=== PATIENT | female | born 1970 | race Two or more races ===

== ENCOUNTER 2024-12-05 17:46 | Emergency (ER) | payer MEDICAID, SELFPAY ==
[2024-12-05 17:47] VITALS: BMI 29.1
--- NOTE | 2024-12-05 17:52 | EKG_ITS ---
[facility] Test Date: 2024-12-05 Pat Name: DEBRA HERNÁNDEZ Department: Room: - Gender: Female [employer] Person: : 1970 Requested By: ED Temporary Provider Order Number: [id number] Reading MD: ED Temporary Provider Measurements Intervals Shirley Rate: 64 P: 56 MI: 159 QRS: 56 QRSD: 77 T: 48 QT: 390 QTc: 403 Interpretive Statements SINUS RHYTHM MODERATE ST DEPRESSION [0.05+ mV ST DEPRESSION] No previous ECG available for comparison /[id number]/[email or web address]/[id number].pdf
[2024-12-05 18:33] VITALS: BP 183/98; PULSE 63; RESP 18; TEMP 37.1; O2SAT 100
--- NOTE | 2024-12-05 18:46 | XR_ITS ---
Examination: PA lateral chest 2 views Technique: Upright PA lateral chest 2 views Exam date and time: December 05, 2024 at 1949 hrs. Indications: Onset chest pain today Findings: No significant cardiac enlargement No pneumonia or pulmonary edema The osseous structures are intact Impression: No pneumonia or pulmonary edema
--- NOTE | 2024-12-05 18:46 | PD.EDRME ---
Rapid Medical Screening Exam E Arrival date/time: 12/05/24 17:46 54-year-old female past medical history of hypertension presents emergency department complaining of left-sided chest pain that radiates to left arm and upper neck 05/05 that started this morning. Patient report was sent by primary care provider for evaluation. Chief Complaint: Chest Pain Time Seen by Provider: 12/05/24 18:34 Vital signs: Vital Signs Temperature 98.7 F 12/05/24 18:33 Pulse Rate 63 12/05/24 18:33 Respiratory Rate 18 12/05/24 18:33 Blood Pressure 183/98 H 12/05/24 18:33 Pulse Oximetry (%) 100 12/05/24 18:33 Oxygen Delivery Method Room Air 12/05/24 18:33 Vital signs reviewed by provider: Yes
[2024-12-05 19:21] LABS: Collection Type, Urine Clean Catch
[2024-12-05 19:30] LABS: Basophils % (Auto) 1 % (0-2.5); Eosinophils # (Auto) 0.2 Thou/mm3 (0.0-0.5); Eosinophils % (Auto) 2 % (0-10); Hematocrit 40.7 % (36.0-46.0); Hemoglobin 13.3 g/dL (12.0-16.0); Immature Granulocytes % (Auto) 0 % (0-0); Immature Granulocytes Auto 0.01 Thou/mm3 (0.00-0.00); Lymphocytes % (Auto) 29 % (10-50); Mean Corpuscular HGB Conc 32.7 g/dl (31.0-37.0); Mean Corpuscular Hemoglobin 28.5 pg (25.0-35.0); Mean Corpuscular Volume 87 fL (80-100); Monocytes # (Auto) 0.5 Thou/mm3 (0.0-0.8); Monocytes % (Auto) 7 % (0-12); Neutrophils # (Auto) 4.2 Thou/mm3 (1.8-7.7); Neutrophils % (Auto) 61 % (37-80); Nucleated Red Blood Cell % 0 /100 WBC (0); Platelet Count 325 Thou/mm3 (140-440); RDW Standard Deviation 43.8 fL (36.4-46.3); Red Blood Count 4.66 Miln/mm3 (4.00-5.20)
[2024-12-05 19:35] LABS: Bilirubin,Urine Negative (Negative); Blood,Urine Negative (Negative); Clarity,Urine Clear (Clear/Hazy); Color,Urine Colorless (Lt Yel-Yel); Glucose, Urine Negative (Negative); Ketones,Urine Negative (Negative); Leukocyte Esterase,Urine Negative (Negative); Nitrite,Urine Negative (Negative); PH,Urine 6.5 (5.0-7.0); Protein,Urine Negative (Neg - Trace); RBC,Urine 2 /hpf (0-3); Specific Gravity,Urine 1.012 (1.001-1.035); Squamous Epithelial Cell,Urine < 1 /hpf (0-5); Urobilinogen,Urine Negative mg/dL (0.0-1.0); WBC,Urine < 1 /hpf (0-5)
[2024-12-05 19:41] LABS: Prothrombin Time 11.1 Seconds (9.0-12.2)
[2024-12-05 19:44] LABS: B-Type Natriuretic Peptide 56 pg/mL (0-100)
[2024-12-05 19:46] LABS: Alanine Aminotransferase 94 U/L (10-49); Albumin/Globulin Ratio 1.5 (1.2-2.2); Alkaline Phosphatase 211 U/L (46-116); Anion Gap 10 (7-16); Aspartate Amino Transferase 79 U/L (0-34); BUN/Creatinine Ratio 14 Ratio (12-20); Bilirubin,Total 0.3 mg/dL (0.3-1.2); Blood Urea Nitrogen 13 mg/dL (9-23); Calcium 10.5 mg/dL (8.3-10.6); Calcium (Corrected) 10.5 mg/dL (8.5-10.1); Carbon Dioxide 25.6 mMol/L (20.0-31.0); Chloride 108 mMol/L (98-107); Creatinine (Component) 0.9 mg/dL (0.6-1.3); Estimated Creatinine Clearance 74.4 mL/min (>60); Globulin 3.4 gm/dL (2.3-3.5); Glucose 105 mg/dL (74-106); Magnesium 2.2 mg/dL (1.6-2.6); Osmolality,Calculated 286 (275-295); Potassium 3.8 mMol/L (3.4-5.1); Sodium 144 mMol/L (136-145); Total Protein 8.4 gm/dL (5.7-8.2); Troponin I < 0.002 ng/mL (0.0-0.045); eGFR > 60 See Note
--- NOTE | 2024-12-05 19:50 | XR_ITS ---
Examination: Abdomen sonogram, Limited Date and time of exam: December 05, 2024 1959 hrs. Indications: Elevated liver function tests on laboratory examination today Technique: Real-time robles scale transabdominal sonographic images of the upper abdomen obtained. Findings: Gallbladder sludge Gallbladder wall 0.4 cm with edema Common bile duct 0.2 cm Pancreatic head 2.4 cm Liver 14.3 cm no focal liver lesions Normal hepatopedal portal venous flow Patent IVC Impression: Findings suspicious for acute acalculous cholecystitis, consider MRCP follow-up
[2024-12-05 20:08] LABS: Amphetamine/Methamp Scrn,U Negative (Negative); Barbiturate Screen,Urine Negative (Negative); Benzodiazepines Screen,Urine Negative (Negative); Benzoylecgonine Screen, Ur Negative (Negative); Fentanyl Screen,Urine Negative (Negative); Opiate Screen,Urine Negative (Negative); THC Screen,Urine Negative (Negative)
[2024-12-05] MEDS: MG HYD/AL HYD/SIME (Maalox Reg) SUSP 30 ML UDC PO (21:49)
[2024-12-05] MEDS: LIDOCAINE VISCOUS 2% 15 ML UDC PO (21:49)
[2024-12-05] MEDS: FAMOTIDINE 20 MG TABLET 40 MG PO (21:50)
[2024-12-05] MEDS: KETOROLAC INJ 60 MG/2 ML VIAL 30 MG IM (21:52)
[2024-12-05 21:57] LABS: Lipase 35 U/L (12-53)
--- NOTE | 2024-12-05 22:29 | EDNOTE_ITS ---
ED Chest Pain RME/HPI General Chief Complaint: Chest Pain Stated Complaint: CXP SINCE 1300, HIGH BP AT PMD OFFICE Time Seen by Provider: 12/05/24 18:34 Source: patient Arrival date/time: 12/05/24 17:46 54-year-old female past medical history of hypertension presents emergency department complaining of left-sided chest pain that radiates to left arm and upper neck 7/10 that started this morning. Patient report was sent by primary care provider for evaluation. Patient denies any vomiting, fever, chills, diarrhea, or any other associated symptom. Mode of arrival: ambulatory Limitations: no limitations RME / HPI RME / HPI narrative: 12/05/24 17:46 54-year-old female past medical history of hypertension presents emergency department complaining of left-sided chest pain that radiates to left arm and upper neck 7/10 that started this morning. Patient report was sent by primary care provider for evaluation. Related Data Previous Rx's ?Medication ?Instructions ?Recorded ibuprofen 600 mg tablet 600 mg PO Q8H PRN pain #20 t abs 12/05/24 Allergies Allergy/AdvReac Type Severity Reaction Status Date / Time No Known Allergies Allergy Verified 12/05/24 17:51 Review of Systems Review of Systems Systems Reviewed: All systems reviewed, normal except as documented Constitutional Constitutional: Reports system reviewed and no additional complaints, except as documented, Denies body ache(s), Denies chills and Denies fever(s) Eyes Eyes: Reports system reviewed and no additional complaints, except as documented and Denies change in vision ENT Ears, Nose, Mouth, and Throat: Reports system reviewed and no additional complaints, except as documented, Denies disequilibrium, Denies dizziness, Reports neck pain, Denies sore throat and Denies vertigo Cardiovascular Cardiovascular: Reports system reviewed and no additional complaints, except as documented, Reports chest pain and Denies dyspnea Respiratory Respiratory: Reports system reviewed and no additional complaints, except as documented, Denies chest congestion, Denies cough and Denies dyspnea Gastrointestinal Gastrointestinal: Reports system reviewed and no additional complaints, except as documented, Denies abdominal pain, Denies nausea and Denies vomiting Musculoskeletal Musculoskeletal: Reports system reviewed and no additional complaints, except as documented, Denies abnormal gait, Denies arthralgias, Reports neck pain and Reports radiating pain into limb Integumentary/Breasts Skin/Breast: Reports system reviewed and no additional complaints, except as documented, Denies erythema, Denies rash and Denies wounds Neurologic Neurologic: Reports system reviewed and no additional complaints, except as documented, Denies abnormal gait, Denies disequilibrium, Denies dizziness and Denies vertigo Past Medical History Social History SMOKING STATUS: Never smoker ED Exam General Limitations: Present no limitations General appearance: Present alert and in no apparent distress Head Head exam: Present atraumatic Eye Eye exam: Present normal appearance, PERRL and EOMI ENT ENT exam: Present normal exam, normal oropharynx and mucous membranes moist Neck Neck exam: Present normal inspection, full ROM and trachea midline Chest Chest inspection: Present normal inspection and symmetric chest wall rise Respiratory Respiratory exam: Present normal lung sounds bilaterally Cardiovascular Cardiovascular exam: Present regular rate, normal rhythm and normal heart sounds Abdominal Exam Abdominal exam: Present soft and normal bowel sounds; Absent distention, tenderness, guarding, rebound or Rae's sign Extremities Exam Extremities exam: Present normal inspection and full ROM Back Exam Back exam: Present normal inspection and full ROM Neurological Exam Neurological exam: Present alert, oriented X3 and CN II-XII intact Psychiatric Psychiatric exam: Present normal affect and normal mood Skin Skin exam: Present warm, dry, intact and normal color Course Quality Measures none Orders Category Date Time Status EKG (ED ONLY) *Do not use* NOW Care 12/05/24 17:52 Completed EKG (ED Only) Stat Exams 12/05/24 17:52 Draft US gall bladder Stat Exams 12/05/24 19:50 Completed XR chest 2V Stat Exams 12/05/24 18:46 Completed B-Type Natriuretic Peptide Stat Lab 12/05/24 18:57 Completed CBC Stat Lab 12/05/24 18:57 Completed Comprehensive Metabolic Panel Stat Lab 12/05/24 18:57 Completed Drug Screen,Urine Stat Lab 12/05/24 19:15 Completed Lipase Stat Lab 12/05/24 18:57 Completed Magnesium Stat Lab 12/05/24 18:57 Completed Partial Thromboplastin Time Stat Lab 12/05/24 18:57 Completed Prothrombin Time with INR Stat Lab 12/05/24 18:57 Completed Troponin I Stat Lab 12/05/24 18:57 Completed Urinalysis Stat Lab 12/05/24 19:15 Completed Famotidine [Pepcid] Med 12/05/24 21:19 Discontinued 40 mg PO X1 ONE Ketorolac Inj [Toradol Inj] Med 12/05/24 21:20 Discontinued 30 mg IM X1 ONE Lidocaine 2% Viscous [Xylocaine 2% Viscous] Med 12/05/24 21:19 Discontinued 15 ml PO X1 ONE mg Hyd/Al Hyd/Lisseth Susp [Maalox Susp] Med 12/05/24 21:19 Discontinued 30 ml PO X1 ONE Vital Signs Vital signs: Vital Signs Temperature 98.7 F 12/05/24 18:33 Pulse Rate 63 12/05/24 18:33 Respiratory Rate 18 12/05/24 18:33 Blood Pressure 183/98 H 12/05/24 18:33 Pulse Oximetry (%) 100 12/05/24 18:33 Oxygen Delivery Method Room Air 12/05/24 18:33 100% room air within normal limits Procedures -ED EKG Interpretation #1: Date of EK12/05/24 Time of EK:41 Rate: 64 Interpretation: Interpreted by me EKG Impression: Normal sinus rhythm, No acute ST-T changes, No ectopy, No ischemic changes and Normal QRS Chest Pain MDM Narrative MDM Narrative:: 54-year-old female past medical history of hypertension presents emergency department complaining of left-sided chest pain that radiates to left arm and upper neck 05/05 that started this morning. Patient report was sent by primary care provider for evaluation. Patient denies any vomiting, fever, chills, diarrhea, or any other associated symptom. CBC was unremarkable for any leukocytosis or anemia. CMP AST 79, ALT 94, alkaline phos 211 with normal lipase. EKG sinus rhythm with normal troponin. Chest x-ray was unremarkable. Urinalysis was unremarkable. Ultrasound suspicious for acalculous cholecystitis. Patient was given GI cocktail and reported complete resolution of pain. Patient's abdomen is soft and nontender. Patient stable for discharge directed to follow-up with primary care provider and request referral to general surgeon and return to emergency department for any worsening symptoms or as needed. Patient data External records reviewed:: None Clinical information provided by:: patient Social determinants that could affect healthcare access:: none Patient has the following chronic illnesses:: See chart How is presenting disease/condition affected by chronic disease/condition?: uneffected by Evaluation data The following diagnostics were reviewed and interpreted by me:: lab results, radiology exam(s) and EKG tracing(s) Lab and/or radiology exams considered but not ordered:: Ordered Interpretation Summary: Interpreted by me Medications / Prescriptions Medications or Prescriptions considered but not ordered:: Ordered Medication administrations:: Medication Administration History Discontinued Medications Al Hydrox/Mg Hydrox/Simethicone (Mg Hyd/Al Hyd/Lisseth (Maalox Reg) Susp 30 Ml Udc) 30 ml PO X1 ONE Stop: 12/05/24 21:20 Last Admin: 12/05/24 21:49 Dose: 30 ml Documented By: CVL Famotidine (Famotidine 20 Mg Tablet) 40 mg PO X1 ONE Stop: 12/05/24 21:20 Last Admin: 12/05/24 21:50 Dose: 40 mg Documented By: CVL Ketorolac Tromethamine (Ketorolac Inj 60 Mg/2 Ml Vial) 30 mg IM X1 ONE Stop: 12/05/24 21:21 Last Admin: 12/05/24 21:52 Dose: 30 mg Documented By: CVL Lidocaine HCl (Lidocaine Viscous 2% 15 Ml Udc) 15 ml PO X1 ONE Stop: 12/05/24 21:20 Last Admin: 12/05/24 21:49 Dose: 15 ml Documented By: CVL Given Consultations Consultation(s) initiated? (list below): No Diagnosis Chest Pain Differential Diagnosis: fracture of rib, pneumothorax, stable angina, unstable angina pectoris, atypical chest pain, st elevation myocardial infarction, costochondritis, chest pain, biliary colic and other (Cholecystitis) Most likely diagnosis given after review of the tests above:: Biliary colic Admission Indicated Admission indicated?: not indicated Admission Request Was there a request for admission?: No Disposition Plan Disposition Plan: Discharge Discharge Attestation Discharge Attestation: The patient and all family members were given an opportunity to ask questions and understood the discharge instructions. Discharge instructions specifically effects, indications for sooner follow up or return to the emergency department, and the expected course of current diagnosis. Patient condition: Stable Discharge Plan Plan Patient Disposition: HOME (Self Care) Disposition Comment: Stable Prescriptions/Referrals Prescriptions/Med Rec: New ibuprofen 600 mg tablet 600 mg PO Q8H PRN (Reason: pain) Qty: 20 0RF Referrals: No Primary/Family,Physician [Primary Care Provider] - In 1 week Problem List Clinical Impression: Biliary colic Patient/Caregiver Discharge Instructions Discharge Activity: activity as tolerated Education Materials: Discharge Instructions for ..., ED Gallstones with Biliary Colic Additional Instructions: Your ultrasound did not show any gallstones but suspicious for cholecystitis. Avoid eating greasy food for the next several days. Close follow-up with primary care provider and request referral to general surgeon. Return immediately to emergency department for any fever, vomiting, worsening pain, worsening symptoms, or as needed. Print Language: Filipino Stand Alone Forms: Laure Award Info., Patient Portal Info Letter PA/LAURY Supervising Physician PA/LAURY Supervising Physician: Dr. Macias
== END 2024-12-05 23:09 | disposition home or self-care (01) ==
PROVIDERS: Emergency Provider Emergency Medicine
DX: K80.50 Calculus of bile duct without cholangitis or cholecystitis without obstruction (principal); R07.9 Chest pain, unspecified; I10 Essential (primary) hypertension
CPT/HCPCS: 36415; 71046; 76705; 80053; 80307; 81001; 83690; 83735; 83880; 84484; 85025; 85610; 85730; 93005; 96372; 99284; J1885; J3490; A9270